=== PATIENT | female | born 1960 | race Caucasian/White ===

== ENCOUNTER → 2016-09-23 | Outpatient (CLI) | payer OTHER ==
--- NOTE | 2016-09-23 12:06 | DX ---
Bilateral Hands, Three Views Each. HISTORY: Pain. Rheumatoid arthritis. Evaluate for erosions or degenerative change. FINDINGS: There appears to be periarticular demineralization. No evidence for periarticular erosion o r joint narrowing. No evidence for soft tissue calcification. There appears to be a carpal cyst in th e hamate on the right. There is a benign area of sclerosis of groundglass density in the proximal fou rth phalanx on the right. No aggressive osseous lesion is visualized. IMPRESSION: 1. Periarticular demineralization which could be seen with early inflammatory arthropathy. 2. Benign-appearing lesion in the fourth right proximal phalanx which could represent fibrous dysplas ia or ossified fibroxanthoma.
--- NOTE | 2016-09-23 12:07 | DX ---
Bilateral Feet, Three Views Each. HISTORY: Pain. Rheumatoid arthritis. Evaluate for erosions or degenerative change. FINDINGS: Left Foot There is a large enthesophyte at the plantar insertion of the calcaneus without evidence fo r erosion. There is mild hallux valgus and bunion deformity. Minimal subarticular sclerosis is seen a t the first metatarsophalangeal joint with a small subcortical cyst in the metatarsal head. No eviden ce for periarticular erosion. Right Foot: There is mild hallux valgus and bunion deformity. Minimal early degenerative change is se en in the right first metatarsophalangeal joint with subarticular sclerosis and a small subcortical c yst in the metatarsal head. No evidence for periarticular erosion. IMPRESSION: Mild early degenerative change in the first metatarsophalangeal joint bilaterally with del rio llux valgus and bunion deformity. Large enthesophyte at the plantar insertion of the calcaneus on the left.
--- NOTE | 2016-09-23 16:10 | DX ---
DEXA Bone Mineral Densitometry Clinical Indications: Postmenopausal female with rheumatoid arthritis. Assess for osteoporosis. Comparison: None. Technique: Bone Mineral Densitometry (BMD) by Dual Energy X-Ray Absorptiometry (DEXA) was performed utilizing the Acucela scanner. The lumbar spine was evaluated in the AP projection. The bilat eral hips and forearm were evaluated in the AP projection. Vertebral fracture assessment was also pe rformed. AP Lumbar Spine: The L1, L2, L3 and L4 vertebral bodies were evaluated. BMD: 1.137 gm/cm2 T-score: -0.5 SD Z-score: 0.0 SD AP left Hip: Neck BMD: 0.910 gm/cm2 T-score: -0.9 SD Z-score: -0.1 SD AP right Hip: Neck BMD: 0.888 gm/cm2 T-score: -1.1 SD Z-score: -0.3 SD AP left Forearm, 09/06: BMD: 0.914 gm/cm2 T-score: 0.4 SD Z-score: 1.1 SD Vertebral Fracture Assessment: No significant fracture deformity. Conclusion: Considering the lowest measured site, the patient has normal mineralization. The ten year risk for any major osteoporotic fracture is 8.1% and for a hip fracture is 0.5%. Any bone loss in this patient is probably related to aging or estrogen deficiency. To prevent osteoporosis and to promote the patient's bone density, the following recommendations shou ld be considered: 1. Pursue a regular regimen of weightbearing and muscle strengthening exercises in order to reduce t he risk of falls and fractures (as tolerated by the patient's general medical condition). 2. Ensure that total daily calcium uptake is 1500 mg (diet plus supplements). 3. Ensure that intake of vitamin D is 400 to 800 international units. 4. Consider follow-up DEXA scan in two years to assess the rate of bone loss in this patient.
== END ==
LOC: BRMIMAGING 10:11
PROVIDERS: ATTEND Internal Medicine
DX: Z13.820 Encounter for screening for osteoporosis (principal); M06.9 Rheumatoid arthritis, unspecified; M85.849 Other specified disorders of bone density and structure, unspecified hand
CPT/HCPCS: 73130-PO; 73630-PO